=== PATIENT | female | born 1970 | race Caucasian/White ===

== ENCOUNTER 2019-02-13 05:21 | Inpatient (IN) | payer OTHER ==
[2019-02-12 12:10] VITALS: Ht 158.8 cm; Wt 92.0 kg
[~2019-02-13] VITALS: Ht 158.8 cm; Wt 92.0 kg
[2019-02-13] VITALS (36 sets, daily range): BP systolic 91–113; BP diastolic 47–61; PULSE 60–92; RESP 11–22
[~2019-02-13 05:21] MED LIST: ACET325T33 PO; AMOX500C2 PO; CEPH-443; HYDR-1666; [UNRECOGNIZED DRUG - CODE]; [UNRECOGNIZED DRUG - REMARK]
[2019-02-13] MEDS ORDERED: CEFAZOLIN 2 GM/50 ML (PMX) 50 ML IVPB SCH (06:00)
[2019-02-13] MEDS ORDERED: LACTATED RINGER'S 1,000 ML IV SCH ×2 (06:30)
[2019-02-13] MEDS ORDERED: PROPOFOL 20 ML ONE (06:55)
[2019-02-13] MEDS ORDERED: ROCURONIUM 50 MG INJ ONE (06:56)
[2019-02-13] MEDS ORDERED: POLYMYXIN/BACITRACIN 1L IRRIG ONE (06:56)
[2019-02-13] MEDS ORDERED: THROMBIN 5000 UNIT (RECOTHROM) VIAL ONE (06:56)
[2019-02-13] MEDS ORDERED: ONDANSETRON 4 MG INJ ONE (06:56)
[2019-02-13] MEDS ORDERED: DEXAMETHASONE 4 MG/ML 5 ML INJ ONE (06:56)
[2019-02-13] MEDS ORDERED: FENTAnyl 50 MCG/ML VIAL ONE ×2 (06:56→07:37)
[2019-02-13] MEDS ORDERED: MIDAZOLAM 1 MG/ML 2 ML INJ ONE (06:56)
[2019-02-13] MEDS ORDERED: GELATIN SIZE 100 SPONGE ONE (06:56)
[2019-02-13] MEDS ORDERED: METOCLOPRAMIDE 10 MG INJ ONE (06:56)
[2019-02-13] MEDS ORDERED: BUPIVACAINE 0.25% (MPF) 30 ML INJ ONE (06:56)
[2019-02-13] MEDS ORDERED: LABETALOL HCL 20MG INJ IV PRN (07:00)
[2019-02-13] MEDS ORDERED: METOCLOPRAMIDE 10 MG INJ IV PRN (07:00)
[2019-02-13] MEDS ORDERED: ONDANSETRON 4 MG INJ IV PRN ×2 (07:00→09:30)
[2019-02-13] MEDS ORDERED: EPHEDrine 25 MG/5 ML SYG IV PRN (07:00)
[2019-02-13] MEDS ORDERED: HYDROmorphONE 1 MG/5 ML IV SYRINGE IV PRN ×3 (07:00)
[2019-02-13] MEDS ORDERED: SEVOFLURANE 15 MIN ONE (07:00)
[2019-02-13] MEDS ORDERED: OXYCODONE/ACETAMINOPHEN (5/325) TAB PO PRN (07:00)
[2019-02-13] MEDS ORDERED: FENTAnyl 50 MCG/ML VIAL IV PRN ×3 (07:00)
[2019-02-13] MEDS ORDERED: MEPERIDINE 25 MG INJ IV PRN (07:00)
[2019-02-13] MEDS ORDERED: DIPHENHYDRAMINE 50 MG INJ IV PRN (07:00)
[2019-02-13] MEDS ORDERED: DIPHENHYDRAMINE 50 MG INJ IV ONE (07:00)
[2019-02-13] MEDS ORDERED: LABETALOL HCL 20MG INJ ONE (07:24)
[2019-02-13] MEDS ORDERED: SUGAMMADEX SODIUM 200 MG/2 ML VIAL IV ONE (08:45)
[2019-02-13] MEDS ORDERED: DIAZEPAM 10 MG/2 ML SYG IM PRN (09:30)
[2019-02-13] MEDS ORDERED: PROCHLORPERAZINE 10 MG TAB PO PRN (09:30)
[2019-02-13] MEDS ORDERED: NACL 0.9% 3 ML SYG IV SCH (09:30)
[2019-02-13] MEDS ORDERED: NALOXONE (0.4 MG/ML) INJ IV PRN (09:30)
[2019-02-13] MEDS ORDERED: TRIMETHOBENZAMIDE 100 MG/ML VIAL IM PRN (09:30)
[2019-02-13] MEDS ORDERED: HYDROmorphONE 0.2 MG/ML PCA IV SCH (09:30)
[2019-02-13] MEDS ORDERED: ACETAMINOPHEN 325 MG TAB PO PRN (09:30)
[2019-02-13] MEDS ORDERED: BETHANECHOL 25 MG TAB PO PRN (09:30)
[2019-02-13] MEDS ORDERED: CEPASTAT LOZENGE MT PRN (09:30)
[2019-02-13] MEDS ORDERED: DIPHENHYDRAMINE 50 MG CAP PO PRN (09:30)
[2019-02-13] MEDS ORDERED: AL HYDROX/MG HYDROX/SIMETH 30 ML CUP PO PRN (09:30)
[2019-02-13] MEDS ORDERED: HYDROCODONE/APAP (5/325) TAB PO PRN ×2 (09:30)
[2019-02-13] MEDS ORDERED: DIAZEPAM 5 MG TAB PO PRN (09:30)
[2019-02-13] MEDS ORDERED: ZOLPIDEM 5 MG TAB PO PRN (09:30)
[2019-02-13] MEDS ORDERED: HYDROmorphONE 0.2 MG/ML PCA ONE (09:48)
[2019-02-13] MEDS: DEXTROSE 5%-0.45% NACL 1,000 ML IV SCH ×3 (11:33→22:14)
[2019-02-13] MEDS: RANITIDINE 150 MG TAB PO SCH (20:29)
[2019-02-14 05:00] VITALS: BP 96/54; PULSE 75; RESP 18
[2019-02-14] MEDS ORDERED: BETHANECHOL 25 MG TAB PO PRN (08:00)
[2019-02-14 08:24] VITALS: BP 101/48; PULSE 73; RESP 18
[2019-02-14] MEDS: RANITIDINE 150 MG TAB PO SCH (08:40)
[2019-02-14] MEDS ORDERED: DOCUSATE SODIUM 100 MG CAP PO SCH (09:00)
[2019-02-14] MEDS ORDERED: ASCORBIC ACID 500 MG TAB PO SCH (09:00)
[2019-02-14] MEDS ORDERED: FERROUS SULFATE (EC) 325 MG TAB PO SCH (09:00)
[2019-02-14] MEDS ORDERED: HYDROCODONE/APAP (5/325) TAB PO PRN ×2 (10:00)
== END 2019-02-14 12:40 | disposition home or self-care (01) | DRG 520 ==
LOC: REC 05:21 → EDSTATUS 07:00 → MS1 11:16
PROVIDERS: ADMIT Orthopaedic Surgery; ATTEND Orthopaedic Surgery
PROC: 0SB20ZZ Excision of Lumbar Vertebral Disc, Open Approach (ICD-10-PCS; 2019-02-13)
PROC: 01NR0ZZ Release Sacral Nerve, Open Approach (ICD-10-PCS; 2019-02-13)
PROC: 0SB40ZZ Excision of Lumbosacral Disc, Open Approach (ICD-10-PCS; 2019-02-13)
PROC: 01NB0ZZ Release Lumbar Nerve, Open Approach (ICD-10-PCS; principal; 2019-02-13 07:00)
DX: M51.26 Other intervertebral disc displacement, lumbar region (principal); M51.27 Other intervertebral disc displacement, lumbosacral region
CPT/HCPCS: 72020; 80048; 81001; 85014; 85018; 86850; 86900; 86901; 86920; 88304; 97116; 97161; 97530; J0690; J1100; J1170; J1200; J2250; J2405; J2765; J3010; J7042